=== PATIENT | female | born 1975 | race Two or more races ===

== ENCOUNTER 2017-07-13 12:20 | Emergency (ER) | payer MEDICAID ==
[~2017-07-13] VITALS: Ht 154.9 cm; Wt 100.9 kg
[2017-07-13 12:22] VITALS: BP 126/77
== END 2017-07-13 13:12 | disposition home or self-care (01) ==
LOC: ED 13:10
DX: H00.015 Hordeolum externum left lower eyelid (principal); I10 Essential (primary) hypertension
CPT/HCPCS: 99283

== ENCOUNTER 2021-06-07 12:31 | Inpatient (IN) | payer MEDICAID ==
[~2021-06-07] VITALS: Ht 152.4 cm; Wt 93.8 kg
--- NOTE | 2021-06-07 13:37 | NUR ---
PATIENT WALKED BACK FROM TRIAGE WITH CHIEF C/O "RETAINING FLUIDS AND FEELING TIRED." DIAGNOSED WITH CHF ABOUT A MONTH AGO, UNABLE TO MAKE APPOINTMENTS OR GET RX'S FILLED. NADN, CONNECTED TO MONITOR, VSS, SIGNIFICANT OTHER AT BEDSIDE, CALL LIGHT WITHIN REACH.
[2021-06-07 14:22] LABS: BASOPHILS % (AUTO) 1 % (0-1); EOSINOPHILS % (AUTO) 1 % (1-7); LYMPHOCYTES % (AUTO) 20 % (22-44); MEAN CORPUSCULAR HEMOGLOBIN 29.8 pg (27.0-34.8); MEAN CORPUSCULAR HGB CONC 32.7 g/dL (32.4-35.8); MEAN PLATELET VOLUME 7.7 fL (7.4-10.4); MONOCYTES % (AUTO) 7 % (2-9); NEUTROPHILS % (AUTO) 71 % (42-75); PLATELET COUNT 271 x10^3/uL (130-400)
[2021-06-07] MEDS ORDERED: SODIUM CHLORIDE FLUSH 10ML SYR IVF ONE (14:30)
--- NOTE | 2021-06-07 14:33 | NUR ---
20 GAUGE IV STARTED LEFT AC, PATIENT CONNECTED TO MONITOR, HR TACHY AT 110, OTHER VSS, SIGNIFICANT OTHER AT BEDSIDE, CALL LIGHT WITHIN REACH, WARM BLANKET PROVIDED, NO FURTHER NEEDS AT THIS TIME.
[2021-06-07 14:37] LABS: ALBUMIN 3.1 g/dL (3.4-5.0); ANION GAP 1 mmol/L (5-15); CALCIUM 8.6 mg/dL (8.5-10.1); CHLORIDE 110 mmol/L (98-107); CREATININE 0.83 mg/dL (0.55-1.02)
[2021-06-07 14:48] LABS: TROPONIN I 0.257 ng/mL (0.000-0.045)
[2021-06-07] MEDS ORDERED: ASPIRIN 81 MG TABLET CHEW PO ONE (15:30)
[2021-06-07] MEDS ORDERED: FUROSEMIDE 40 MG/4 ML IVPush ONE (15:30)
[2021-06-07] MEDS ORDERED: FUROSEMIDE 40 MG/4 ML ONE (15:43)
[2021-06-07] MEDS ORDERED: ASPIRIN 81 MG TABLET CHEW ONE (15:43)
[2021-06-07] MEDS ORDERED: morphine SULFATE 10 MG/ML, 1ML IVPush PRN (16:00)
[2021-06-07] MEDS ORDERED: ENALAPRILAT 1.25 MG/ML, 2ML IVPush PRN (16:00)
[2021-06-07] MEDS ORDERED: SODIUM CHLORIDE FLUSH 10ML SYR IVF PRN (16:00)
[2021-06-07] MEDS ORDERED: HYDROcodone/APAP 5/325 TABLET PO PRN (16:00)
[2021-06-07] MEDS ORDERED: POLYETHYLENE GLYCOL 17 GM PACKET PO PRN (16:00)
--- NOTE | 2021-06-07 16:08 | NUR ---
ATTEMPTED TO CALL REPORT X1.
--- NOTE | 2021-06-07 16:28 | NUR ---
REPORT GIVENT TO LINDSAY MENDOZA FOR TRANSFER OF PATIENT CARE.
[2021-06-07 16:30] LABS: TROPONIN I 0.239 ng/mL (0.000-0.045)
--- NOTE | 2021-06-07 17:02 | NUR ---
PATIENT TRANSFERRED TO CARDIAC TELEMETRY IN STABLE CONDITION VIA GURNEY WITH PIECE WORK CHECKER. ALL PATIENT BELONGINGS TAKEN WITH PATIENT TO FLOOR, SIGNIFICANT OTHER ACCOMPANIED PATIENT UPSTAIRS TO FLOOR.
[2021-06-07 17:03] VITALS: BP 100/57
[2021-06-07 17:08] VITALS: BP 100/57
[2021-06-07] MEDS ORDERED: NICOTINE 21 MG/24 HR PATCH.TD24 ONE (18:17)
[2021-06-07] MEDS: FUROSEMIDE 40 MG/4 ML IV SCH (18:27)
[2021-06-07] MEDS: NICOTINE 21 MG/24 HR PATCH.TD24 TD SCH (18:28)
[2021-06-07 19:32] VITALS: BP 118/84
[2021-06-07] MEDS: ATORVASTATIN 40 MG TABLET PO SCH (20:28)
[2021-06-07 22:14] LABS: TROPONIN I 0.254 ng/mL (0.000-0.045)
[2021-06-08 00:44] VITALS: BP 115/82
[2021-06-08] MEDS ORDERED: LORazepam 2 MG/ML, 1ML IV PRN ×5 (01:30)
[2021-06-08] MEDS ORDERED: LORazepam 1MG TABLET PO PRN ×4 (01:30)
[2021-06-08 05:28] VITALS: BP 110/78
[2021-06-08] MEDS: METOPROLOL SUCCINATE 50 MG TAB.ER.24H PO SCH (06:03)
[2021-06-08] MEDS: FUROSEMIDE 40 MG/4 ML IV SCH ×2 (06:04→16:44)
[2021-06-08 06:11] LABS: BASOPHILS % (AUTO) 1 % (0-1); EOSINOPHILS % (AUTO) 2 % (1-7); LYMPHOCYTES % (AUTO) 19 % (22-44); MEAN CORPUSCULAR HEMOGLOBIN 29.3 pg (27.0-34.8); MEAN CORPUSCULAR HGB CONC 32.4 g/dL (32.4-35.8); MEAN PLATELET VOLUME 8.9 fL (7.4-10.4); MONOCYTES % (AUTO) 5 % (2-9); NEUTROPHILS % (AUTO) 74 % (42-75); PLATELET COUNT 275 x10^3/uL (130-400); RED BLOOD COUNT 4.06 x10^6/uL (3.82-5.3); RED CELL DISTRIBUTION WIDTH 16.3 % (9.6-15.2)
[2021-06-08 06:15] LABS: ALBUMIN 3.1 g/dL (3.4-5.0); ANION GAP 5 mmol/L (5-15); CALCIUM 8.8 mg/dL (8.5-10.1); CHLORIDE 104 mmol/L (98-107)
[2021-06-08 06:19] LABS: ALANINE AMINOTRANSFERASE 24 U/L (12-78); ALKALINE PHOSPHATASE 96 U/L (45-117); BILIRUBIN,TOTAL 0.6 mg/dL (0.2-1.0); CREATININE 0.73 mg/dL (0.55-1.02); TOTAL PROTEIN 7.1 g/dL (6.4-8.2)
[2021-06-08 07:23] VITALS: BP 113/80
[2021-06-08] MEDS ORDERED: POTASSIUM CHLORIDE 20 MEQ TAB.ER.PRT PO ONE (09:00)
[2021-06-08] MEDS: CARVEDILOL 3.125 MG TABLET PO SCH ×2 (09:15→16:47)
[2021-06-08] MEDS: ENOXAPARIN 40 MG/0.4 ML SQ SCH (09:16)
[2021-06-08] MEDS: metFORMIN XR 500 MG TAB.ER.24H PO SCH (09:16)
[2021-06-08] MEDS: LOSARTAN 25MG TABLET PO SCH (09:16)
[2021-06-08] MEDS: SPIRONOLACTONE 25 MG TABLET PO SCH (09:16)
[2021-06-08] MEDS: THIAMINE 100MG TABLET PO SCH (09:17)
[2021-06-08 15:10] VITALS: BP 103/71
[2021-06-08] MEDS: LORazepam 0.5MG TABLET PO PRN (16:44)
[2021-06-08 18:39] VITALS: BP 114/77
[2021-06-08] MEDS: ATORVASTATIN 40 MG TABLET PO SCH (20:41)
[2021-06-08 23:59] VITALS: BP 92/60
[2021-06-09 02:03] VITALS: BP 104/65
[2021-06-09] MEDS: LORazepam 0.5MG TABLET PO PRN (02:03)
[2021-06-09] MEDS ORDERED: CARVEDILOL 3.125 MG TABLET PO SCH (06:00)
[2021-06-09 06:01] VITALS: BP_SYST 101; BP_SYST 106; BP_DIAS 69
[2021-06-09] MEDS: METOPROLOL SUCCINATE 50 MG TAB.ER.24H PO SCH (06:03)
[2021-06-09 06:53] VITALS: BP 103/70
[2021-06-09 07:27] LABS: ALBUMIN 2.8 g/dL (3.4-5.0); ANION GAP 4 mmol/L (5-15); CALCIUM 8.7 mg/dL (8.5-10.1); CHLORIDE 100 mmol/L (98-107)
[2021-06-09 07:28] LABS: BASOPHILS % (AUTO) 1 % (0-1); EOSINOPHILS % (AUTO) 1 % (1-7); LYMPHOCYTES % (AUTO) 20 % (22-44); MEAN CORPUSCULAR HEMOGLOBIN 29.3 pg (27.0-34.8); MEAN CORPUSCULAR HGB CONC 32.3 g/dL (32.4-35.8); MEAN PLATELET VOLUME 8.9 fL (7.4-10.4); MONOCYTES % (AUTO) 5 % (2-9); NEUTROPHILS % (AUTO) 72 % (42-75); PLATELET COUNT 298 x10^3/uL (130-400); RED BLOOD COUNT 4.15 x10^6/uL (3.82-5.3); RED CELL DISTRIBUTION WIDTH 16.1 % (9.6-15.2)
[2021-06-09 07:32] LABS: ALANINE AMINOTRANSFERASE 25 U/L (12-78); ALKALINE PHOSPHATASE 85 U/L (45-117); BILIRUBIN,TOTAL 0.9 mg/dL (0.2-1.0); CREATININE 0.77 mg/dL (0.55-1.02); TOTAL PROTEIN 6.9 g/dL (6.4-8.2)
[2021-06-09] MEDS: NICOTINE 21 MG/24 HR PATCH.TD24 TD SCH (08:48)
[2021-06-09] MEDS: ENOXAPARIN 40 MG/0.4 ML SQ SCH (08:49)
[2021-06-09] MEDS: FUROSEMIDE 40 MG/4 ML IV SCH ×2 (08:49→17:27)
[2021-06-09] MEDS: metFORMIN XR 500 MG TAB.ER.24H PO SCH (08:49)
[2021-06-09] MEDS: THIAMINE 100MG TABLET PO SCH (08:49)
[2021-06-09] MEDS: LOSARTAN 25MG TABLET PO SCH (08:49)
[2021-06-09] MEDS: SPIRONOLACTONE 25 MG TABLET PO SCH (08:50)
[2021-06-09 12:45] VITALS: BP 101/60
[2021-06-09] MEDS: GUAIFENESIN/DM 200-20MG, 10ML UDC PO PRN (17:46)
[2021-06-09] MEDS: ATORVASTATIN 40 MG TABLET PO SCH (19:22)
[2021-06-09 19:42] LABS: MICROSCOPIC NOT IND
[2021-06-09 20:51] VITALS: BP 99/62
[2021-06-10] VITALS (7 sets, daily range): BP systolic 92–108; BP diastolic 64–74
[2021-06-10] MEDS: LORazepam 0.5MG TABLET PO PRN (00:43)
[2021-06-10] MEDS: FUROSEMIDE 40 MG/4 ML IV SCH ×2 (06:27→16:37)
[2021-06-10 08:49] LABS: BASOPHILS % (AUTO) 1 % (0-1); EOSINOPHILS % (AUTO) 2 % (1-7); LYMPHOCYTES % (AUTO) 23 % (22-44); MEAN CORPUSCULAR HEMOGLOBIN 29.3 pg (27.0-34.8); MEAN CORPUSCULAR HGB CONC 32.8 g/dL (32.4-35.8); MEAN PLATELET VOLUME 8.5 fL (7.4-10.4); MONOCYTES % (AUTO) 7 % (2-9); NEUTROPHILS % (AUTO) 68 % (42-75); PLATELET COUNT 289 x10^3/uL (130-400); RED BLOOD COUNT 4.07 x10^6/uL (3.82-5.3); RED CELL DISTRIBUTION WIDTH 15.9 % (9.6-15.2)
[2021-06-10 09:00] LABS: ALBUMIN 2.9 g/dL (3.4-5.0); ANION GAP 10 mmol/L (5-15); CALCIUM 8.9 mg/dL (8.5-10.1); CHLORIDE 100 mmol/L (98-107)
[2021-06-10] MEDS: AMPICILLIN/SULBACTAM 3 GM in SODIUM CHLORIDE 0.9% 100 ML IV SCH ×3 (09:00→23:56)
[2021-06-10] MEDS: SPIRONOLACTONE 25 MG TABLET PO SCH (09:01)
[2021-06-10] MEDS: LOSARTAN 25MG TABLET PO SCH (09:01)
[2021-06-10] MEDS: ENOXAPARIN 40 MG/0.4 ML SQ SCH (09:01)
[2021-06-10] MEDS: NICOTINE 21 MG/24 HR PATCH.TD24 TD SCH (09:01)
[2021-06-10] MEDS: metFORMIN XR 500 MG TAB.ER.24H PO SCH (09:01)
[2021-06-10] MEDS: THIAMINE 100MG TABLET PO SCH (09:01)
[2021-06-10 09:03] LABS: ALANINE AMINOTRANSFERASE 29 U/L (12-78); ALKALINE PHOSPHATASE 91 U/L (45-117); BILIRUBIN,TOTAL 0.5 mg/dL (0.2-1.0); CREATININE 0.77 mg/dL (0.55-1.02); TOTAL PROTEIN 6.9 g/dL (6.4-8.2)
[2021-06-10] MEDS: GUAIFENESIN/DM 200-20MG, 10ML UDC PO PRN ×2 (09:56→16:53)
[2021-06-10] MEDS ORDERED: CEFAZOLIN PMX 1GM/50ML 50 ML IVPB ONE (10:30)
[2021-06-10] MEDS ORDERED: FENTANYL PF 100 MCG/2ML ONE (14:22)
[2021-06-10] MEDS ORDERED: CEFAZOLIN 1,000 MG ONE (14:22)
[2021-06-10] MEDS ORDERED: LIDOCAINE 2%, 20ML ONE (14:22)
[2021-06-10] MEDS ORDERED: MIDAZOLAM 1 MG/ML, 5ML ONE (14:22)
[2021-06-10] MEDS: ATORVASTATIN 40 MG TABLET PO SCH (20:22)
[2021-06-10] MEDS: METOPROLOL SUCCINATE 25 MG TAB.ER.24H PO SCH (20:23)
[2021-06-11 00:02] VITALS: BP 101/67
[2021-06-11 01:56] VITALS: BP 104/73
[2021-06-11 02:53] LABS: ANION GAP 7 mmol/L (5-15); CALCIUM 9.1 mg/dL (8.5-10.1); CHLORIDE 102 mmol/L (98-107); CREATININE 1.13 mg/dL (0.55-1.02)
[2021-06-11 07:46] VITALS: BP 102/71
[2021-06-11] MEDS: FUROSEMIDE 40 MG/4 ML IV SCH ×2 (08:12→16:29)
[2021-06-11] MEDS: THIAMINE 100MG TABLET PO SCH (08:13)
[2021-06-11] MEDS: metFORMIN XR 500 MG TAB.ER.24H PO SCH (08:13)
[2021-06-11] MEDS: AMPICILLIN/SULBACTAM 3 GM in SODIUM CHLORIDE 0.9% 100 ML IV SCH ×3 (08:13→23:55)
[2021-06-11] MEDS: NICOTINE 21 MG/24 HR PATCH.TD24 TD SCH (08:14)
[2021-06-11] MEDS: LOSARTAN 25MG TABLET PO SCH (08:15)
[2021-06-11] MEDS ORDERED: ENOXAPARIN 40 MG/0.4 ML SQ SCH (09:00)
[2021-06-11] MEDS ORDERED: MAGNESIUM SULFATE PMX 2GM/50ML 50 ML IV ONE (09:00)
[2021-06-11] MEDS: METOPROLOL SUCCINATE 25 MG TAB.ER.24H PO SCH ×2 (09:25→21:19)
[2021-06-11] MEDS: MAGNESIUM OXIDE 400 MG TABLET PO SCH (09:27)
[2021-06-11 13:46] VITALS: BP 107/73
[2021-06-11 19:46] VITALS: BP 103/68
[2021-06-11] MEDS: ATORVASTATIN 40 MG TABLET PO SCH (21:19)
[2021-06-11] MEDS: ENOXAPARIN 40 MG/0.4 ML SQ SCH (21:20)
[2021-06-12 00:02] VITALS: BP 89/60
[2021-06-12 05:20] LABS: BASOPHILS % (AUTO) 2 % (0-1); EOSINOPHILS % (AUTO) 3 % (1-7); LYMPHOCYTES % (AUTO) 26 % (22-44); MEAN CORPUSCULAR HEMOGLOBIN 29.8 pg (27.0-34.8); MEAN CORPUSCULAR HGB CONC 33.3 g/dL (32.4-35.8); MEAN PLATELET VOLUME 8.6 fL (7.4-10.4); MONOCYTES % (AUTO) 8 % (2-9); NEUTROPHILS % (AUTO) 61 % (42-75); PLATELET COUNT 327 x10^3/uL (130-400); RED BLOOD COUNT 4.34 x10^6/uL (3.82-5.3); RED CELL DISTRIBUTION WIDTH 15.7 % (9.6-15.2)
[2021-06-12 05:35] LABS: CHLORIDE 104 mmol/L (98-107)
[2021-06-12 05:41] LABS: ALANINE AMINOTRANSFERASE 31 U/L (12-78); ALBUMIN 2.9 g/dL (3.4-5.0); ALKALINE PHOSPHATASE 96 U/L (45-117); ANION GAP 4 mmol/L (5-15); BILIRUBIN,TOTAL 0.5 mg/dL (0.2-1.0); CALCIUM 9.3 mg/dL (8.5-10.1)
[2021-06-12] MEDS: FUROSEMIDE 40 MG/4 ML IV SCH (07:30)
[2021-06-12] MEDS: LOSARTAN 25MG TABLET PO SCH (09:00)
[2021-06-12 09:29] VITALS: BP 92/59
[2021-06-12 10:38] VITALS: BP 109/72
[2021-06-12] MEDS: NICOTINE 21 MG/24 HR PATCH.TD24 TD SCH (10:40)
[2021-06-12] MEDS: ENOXAPARIN 40 MG/0.4 ML SQ SCH ×2 (10:40→19:51)
[2021-06-12] MEDS: MAGNESIUM OXIDE 400 MG TABLET PO SCH (10:41)
[2021-06-12] MEDS: METOPROLOL SUCCINATE 25 MG TAB.ER.24H PO SCH ×2 (10:41→19:50)
[2021-06-12] MEDS: SPIRONOLACTONE 25 MG TABLET PO SCH (10:41)
[2021-06-12] MEDS: metFORMIN XR 500 MG TAB.ER.24H PO SCH (10:41)
[2021-06-12] MEDS: THIAMINE 100MG TABLET PO SCH (10:42)
[2021-06-12] MEDS: AMPICILLIN/SULBACTAM 3 GM in SODIUM CHLORIDE 0.9% 100 ML IV SCH ×2 (10:42→18:07)
[2021-06-12 13:40] VITALS: BP 101/69
[2021-06-12 15:34] VITALS: BP 105/74
[2021-06-12] MEDS: BUMETANIDE 1 MG TABLET PO SCH (15:35)
[2021-06-12 18:51] VITALS: BP 111/77
[2021-06-12] MEDS: ATORVASTATIN 40 MG TABLET PO SCH (19:51)
[2021-06-13 00:20] VITALS: BP 101/70
[2021-06-13] MEDS: AMPICILLIN/SULBACTAM 3 GM in SODIUM CHLORIDE 0.9% 100 ML IV SCH ×2 (02:10→11:06)
[2021-06-13 07:51] VITALS: BP 100/67
[2021-06-13] MEDS: METOPROLOL SUCCINATE 25 MG TAB.ER.24H PO SCH (08:17)
[2021-06-13] MEDS: MAGNESIUM OXIDE 400 MG TABLET PO SCH (08:17)
[2021-06-13] MEDS: BUMETANIDE 1 MG TABLET PO SCH (08:17)
[2021-06-13] MEDS: SPIRONOLACTONE 25 MG TABLET PO SCH (08:17)
[2021-06-13] MEDS: THIAMINE 100MG TABLET PO SCH (08:17)
[2021-06-13] MEDS: ENOXAPARIN 40 MG/0.4 ML SQ SCH (08:17)
[2021-06-13] MEDS: LOSARTAN 25MG TABLET PO SCH (08:17)
[2021-06-13] MEDS: NICOTINE 21 MG/24 HR PATCH.TD24 TD SCH (08:18)
[2021-06-13] MEDS: metFORMIN XR 500 MG TAB.ER.24H PO SCH (08:19)
[2021-06-13] MEDS ORDERED: BUMETANIDE 1 MG TABLET PO SCH (09:00)
[2021-06-13] MEDS ORDERED: NICO-587 TD ×3 (11:12→12:53)
[2021-06-13] MEDS ORDERED: BUME1TAB21 PO ×3 (11:12→12:53)
[2021-06-13] MEDS ORDERED: ATOR40TA78 PO ×3 (11:12→12:53)
[2021-06-13] MEDS ORDERED: METF-754 PO ×3 (11:12→12:53)
[2021-06-13] MEDS ORDERED: MAGN400T50 PO ×3 (11:12→12:53)
[2021-06-13] MEDS ORDERED: SPIR25TA PO ×3 (11:12→12:53)
[2021-06-13] MEDS ORDERED: LOSA25TA25 PO ×3 (11:12→12:53)
[2021-06-13] MEDS ORDERED: METO25TA91 PO ×3 (11:12→12:53)
[2021-06-13] MEDS ORDERED: AMOX1TAB64 PO ×3 (12:53→12:55)
== END 2021-06-13 16:01 | disposition home or self-care (01) | DRG 291 ==
LOC: ED 14:27 → EDIP 15:43 → 5SO 17:01
PROVIDERS: ADMIT Hospitalist; ATTEND Hospitalist
DX: I11.0 Hypertensive heart disease with heart failure (principal); J18.9 Pneumonia, unspecified organism; I44.2 Atrioventricular block, complete; Z68.41 Body mass index [BMI] 40.0-44.9, adult; I50.43 Acute on chronic combined systolic (congestive) and diastolic (congestive) heart failure; I42.0 Dilated cardiomyopathy; F17.210 Nicotine dependence, cigarettes, uncomplicated; F15.90 Other stimulant use, unspecified, uncomplicated; I44.1 Atrioventricular block, second degree; R00.1 Bradycardia, unspecified; I08.1 Rheumatic disorders of both mitral and tricuspid valves; E66.9 Obesity, unspecified; E11.9 Type 2 diabetes mellitus without complications; D50.9 Iron deficiency anemia, unspecified; F10.10 Alcohol abuse, uncomplicated; Z86.711 Personal history of pulmonary embolism; Z79.01 Long term (current) use of anticoagulants; Z87.01 Personal history of pneumonia (recurrent); Z79.899 Other long term (current) drug therapy
CPT/HCPCS: 36415; 84145; 96374; 99285; C8929; 71045; 80048; 80053; 81003; 82040; 83036; 83540; 83550; 83735; 83880; 84100; 84484; 85025; 87040; 93005; G0378; J0295; J0690; J1650; J1940; J2250; J3010; Q9957; J3475